=== PATIENT | female | born 1940 | race Caucasian/White ===

== ENCOUNTER 2016-06-30 05:54 | Inpatient (IN) | payer MEDICARE, OTHER ==
[~2016-06-30] VITALS: Ht 152.4 cm; Wt 78.9 kg
[~2016-06-30 05:54] MED LIST: ASPI81CH43 PO; FERR325T47 PO; FURO40TA4 PO; LEVO75CA PO; LISI40TA PO; LORA1TAB12 PO; POTA-167 PO; SITA100T7 PO
[2016-06-30 07:36] LABS: Basophils # (auto) 0 uL; Basophils % (auto) 0.7 % (0.0-2.0); DEFINITIVE VIEW TRANSMISSION; Eosinophils # (auto) 0.1 uL; Eosinophils % (auto) 2.2 % (0.0-7.0); Hematocrit 30.9 % (36.0-46.0); Hemoglobin 9.7 g/dL (12.2-16.2); Lymphocytes # (auto) 0.9 uL; Lymphocytes % (auto) 14.1 % (10.0-50.0); Mean Corpuscular Hemoglobin 26.2 pg (28.0-32.0); Mean Corpuscular Hgb Conc. 31.5 g/dL (32.0-36.0); Mean Platelet Volume 7.7 fL (7.4-10.4); Monocytes # (auto) 0.6 uL; Monocytes % (auto) 8.7 % (0.0-12.0); Neutrophils # (auto) 4.7 uL; Neutrophils % (auto) 74.3 % (37.0-80.0); Platelet Count (auto) 257 10^3/uL (140-450); Red Cell Distribution Width 16.5 % (11.6-16.0); White Blood Cell 6.4 10^3/uL (4.4-10.8)
[2016-06-30 07:50] LABS: INR 1.04 (0.9-1.15); Partial Thromboplastin Time 24.8 sec (22.64-33.71); Prothrombin Time 10.7 sec (9.37-12.3)
[2016-06-30 07:52] LABS: Albumin 3.1 g/dL (3.4-5.0); BUN/Creatinine Ratio 11.8; Calcium 7.8 mg/dL (8.5-10.1); Potassium 3.5 mmol/L (3.5-5.1)
[2016-06-30 07:54] LABS: Bilirubin, Total 0.4 mg/dL (0.2-1.0); Total Protein 6.4 g/dL (6.4-8.2)
[2016-06-30 08:06] LABS: Urine Bilirubin Negative (Negative); Urine Blood Negative /uL (Negative); Urine Color Colorless (Yellow); Urine Glucose Normal (Normal); Urine Ketone Negative (Negative); Urine Nitrite Negative (Negative); Urine RBC <1 /hpf (0 - 4); Urine Squamous Epithelial Cell FEW /hpf (<5); Urine Urobilinogen Normal (Negative)
[2016-06-30] MEDS ORDERED: FUROSEMIDE 40 MG/4 ML VIAL IV ONE (08:15)
[2016-06-30 09:00] LABS: Temperature: 21.9 C (20.0-25.0)
[2016-06-30] MEDS ORDERED: ONDANSETRON HCL 4 MG/2 ML VIAL IV PRN (10:15)
[2016-06-30] MEDS ORDERED: HYDROcodone-ACET 5/325MG TAB PO PRN (10:15)
[2016-06-30] MEDS ORDERED: NITROGLYCERIN 0.4 MG SL TAB SL PRN (10:15)
[2016-06-30] MEDS ORDERED: TEMAZEPAM 15 MG CAP PO PRN (10:15)
[2016-06-30] MEDS ORDERED: ASPirin-EC 81 mg tab PO ONE (10:15)
[2016-06-30] MEDS ORDERED: POTASSIUM CHL 10 Meq TABLET PO ONE (10:15)
[2016-06-30] MEDS ORDERED: LORazepam 0.5 MG TAB PO PRN (10:15)
[2016-06-30] MEDS ORDERED: MORPHINE SULF INJ 2 MG/ML SYRINGE 1ML IV PRN ×2 (10:15)
[2016-06-30] MEDS: MULTIPLE VITAMIN TAB PO SCH (10:23)
[2016-06-30] MEDS: SODIUM CHLOR 0.9% PF (SALINE LOCK) 10ML VIAL IV SCH ×2 (10:23→22:57)
[2016-06-30] MEDS: FAMOTIDINE 20 MG TAB PO SCH ×2 (10:23→22:56)
[2016-06-30] MEDS ORDERED: DEXTROSE (50%) 50ML SYRG IV PRN (10:30)
[2016-06-30] MEDS ORDERED: LISINOPRIL 20 MG TAB PO ONE (10:45)
[2016-06-30] MEDS ORDERED: LEVOTHYROXINE SODIUM 25 MCG TAB PO ONE (10:45)
[2016-06-30] MEDS: InsuLIN REG 1unit/0.01ml Soln (100units/ml) SC SCH ×3 (11:30→22:00)
[2016-06-30] MEDS: ACCU-CHEK COMFORT CURVE STRIP VI SCH ×3 (11:57→22:00)
[2016-06-30 13:00] VITALS: BP 159/67
[2016-06-30 13:24] VITALS: BP 159/67
[2016-06-30 17:00] VITALS: BP 153/59
[2016-06-30] MEDS: FUROSEMIDE 40 MG/4 ML VIAL IV SCH (18:13)
[2016-06-30] MEDS: FERROUS SULFATE 325 MG TAB PO SCH (18:13)
[2016-06-30 22:00] VITALS: BP 138/68
[2016-06-30] MEDS: NYSTATIN TOPICAL POWDER 15GM TOP SCH (22:00)
[2016-06-30] MEDS: POTASSIUM CHL 10 Meq TABLET PO SCH (22:56)
[2016-07-01 05:00] VITALS: BP 145/69
[2016-07-01 05:59] LABS: Basophils # (auto) 0.1 uL; Basophils % (auto) 1.2 % (0.0-2.0); DEFINITIVE VIEW TRANSMISSION; Eosinophils # (auto) 0.2 uL; Eosinophils % (auto) 3.2 % (0.0-7.0); Hematocrit 34.7 % (36.0-46.0); Lymphocytes # (auto) 1.4 uL; Lymphocytes % (auto) 24.9 % (10.0-50.0); Mean Corpuscular Hemoglobin 26.8 pg (28.0-32.0); Mean Corpuscular Hgb Conc. 31.7 g/dL (32.0-36.0); Mean Corpuscular Volume 84.6 fL (80.0-100.0); Monocytes # (auto) 0.7 uL; Monocytes % (auto) 12.6 % (0.0-12.0); Neutrophils # (auto) 3.2 uL; Neutrophils % (auto) 58.1 % (37.0-80.0); Platelet Count (auto) 269 10^3/uL (140-450); Red Cell Distribution Width 15.1 % (11.6-16.0); White Blood Cell 5.6 10^3/uL (4.4-10.8)
[2016-07-01 06:22] LABS: Albumin 3.7 g/dL (3.4-5.0); BUN/Creatinine Ratio 11.6; Bilirubin, Total 0.6 mg/dL (0.2-1.0); Calcium 8.7 mg/dL (8.5-10.1); Potassium 3.7 mmol/L (3.5-5.1)
[2016-07-01] MEDS: LEVOTHYROXINE SODIUM 25 MCG TAB PO SCH (06:45)
[2016-07-01] MEDS: FUROSEMIDE 40 MG/4 ML VIAL IV SCH ×2 (06:46→17:21)
[2016-07-01] MEDS: SODIUM CHLOR 0.9% PF (SALINE LOCK) 10ML VIAL IV SCH ×3 (06:46→21:44)
[2016-07-01] MEDS: InsuLIN REG 1unit/0.01ml Soln (100units/ml) SC SCH ×3 (06:47→16:58)
[2016-07-01] MEDS: ACCU-CHEK COMFORT CURVE STRIP VI SCH ×4 (06:47→22:00)
[2016-07-01] MEDS: metroNIDAZOLE 500MG/100ML 100 ML IV SCH ×3 (06:50→21:44)
[2016-07-01 09:00] VITALS: BP 123/48
[2016-07-01] MEDS: FERROUS SULFATE 325 MG TAB PO SCH ×2 (10:38→17:21)
[2016-07-01] MEDS: POTASSIUM CHL 10 Meq TABLET PO SCH ×2 (10:39→21:43)
[2016-07-01] MEDS: LISINOPRIL 20 MG TAB PO SCH (10:39)
[2016-07-01] MEDS: MULTIPLE VITAMIN TAB PO SCH (10:40)
[2016-07-01] MEDS: ASPirin-EC 81 mg tab PO SCH (10:40)
[2016-07-01] MEDS: FAMOTIDINE 20 MG TAB PO SCH ×2 (10:40→21:43)
[2016-07-01] MEDS: NYSTATIN TOPICAL POWDER 15GM TOP SCH (10:41)
[2016-07-01 12:59] VITALS: BP 128/62
[2016-07-01 17:00] VITALS: BP 158/57
[2016-07-01 22:00] VITALS: BP 145/68
[2016-07-02] MEDS: InsuLIN REG 1unit/0.01ml Soln (100units/ml) SC SCH ×5 (00:37→22:00)
[2016-07-02] MEDS: NYSTATIN TOPICAL POWDER 15GM TOP SCH ×3 (00:40→22:54)
[2016-07-02 04:57] VITALS: BP 142/52
[2016-07-02] MEDS: ACETAMINOPHEN 325 MG TAB PO PRN (05:23)
[2016-07-02] MEDS: LEVOTHYROXINE SODIUM 25 MCG TAB PO SCH (06:50)
[2016-07-02] MEDS: FUROSEMIDE 40 MG/4 ML VIAL IV SCH ×3 (06:51→18:43)
[2016-07-02] MEDS: metroNIDAZOLE 500MG/100ML 100 ML IV SCH ×3 (06:51→22:53)
[2016-07-02] MEDS: SODIUM CHLOR 0.9% PF (SALINE LOCK) 10ML VIAL IV SCH ×3 (06:51→22:53)
[2016-07-02] MEDS: ACCU-CHEK COMFORT CURVE STRIP VI SCH ×4 (06:52→22:54)
[2016-07-02] MEDS: FERROUS SULFATE 325 MG TAB PO SCH ×2 (07:56→17:30)
[2016-07-02 09:00] VITALS: BP 119/62
[2016-07-02] MEDS: POTASSIUM CHL 10 Meq TABLET PO SCH ×2 (10:29→22:53)
[2016-07-02] MEDS: MULTIPLE VITAMIN TAB PO SCH (10:29)
[2016-07-02] MEDS: FAMOTIDINE 20 MG TAB PO SCH ×2 (10:29→22:53)
[2016-07-02] MEDS: ASPirin-EC 81 mg tab PO SCH (10:30)
[2016-07-02] MEDS: LISINOPRIL 20 MG TAB PO SCH (10:31)
[2016-07-02 13:00] VITALS: BP 129/46
[2016-07-02 16:16] LABS: Urine Bilirubin Negative (Negative); Urine Color PINK (Yellow); Urine Glucose Normal (Normal); Urine Ketone Negative (Negative); Urine Nitrite Negative (Negative); Urine RBC 792 /hpf (0 - 4); Urine Squamous Epithelial Cell FEW /hpf (<5); Urine Urobilinogen Normal (Negative)
[2016-07-02 16:47] LABS: Urine Blood 3+ /uL (Negative)
[2016-07-02 17:00] VITALS: BP 119/63
[2016-07-02 21:54] VITALS: BP 124/64
[2016-07-03 05:00] VITALS: BP 135/61
[2016-07-03] MEDS: InsuLIN REG 1unit/0.01ml Soln (100units/ml) SC SCH ×4 (07:00→22:00)
[2016-07-03] MEDS: metroNIDAZOLE 500MG/100ML 100 ML IV SCH ×3 (07:48→22:30)
[2016-07-03] MEDS: FUROSEMIDE 40 MG/4 ML VIAL IV SCH ×2 (07:49→18:11)
[2016-07-03] MEDS: SODIUM CHLOR 0.9% PF (SALINE LOCK) 10ML VIAL IV SCH ×3 (07:49→22:30)
[2016-07-03] MEDS: LEVOTHYROXINE SODIUM 25 MCG TAB PO SCH (07:49)
[2016-07-03] MEDS: ACCU-CHEK COMFORT CURVE STRIP VI SCH ×4 (07:50→22:45)
[2016-07-03] MEDS: FERROUS SULFATE 325 MG TAB PO SCH ×2 (08:04→18:11)
[2016-07-03 09:00] VITALS: BP 116/53
[2016-07-03] MEDS: ASPirin-EC 81 mg tab PO SCH (09:52)
[2016-07-03] MEDS: POTASSIUM CHL 10 Meq TABLET PO SCH ×2 (09:52→22:30)
[2016-07-03] MEDS: LISINOPRIL 20 MG TAB PO SCH (09:53)
[2016-07-03] MEDS: MULTIPLE VITAMIN TAB PO SCH (09:53)
[2016-07-03] MEDS: FAMOTIDINE 20 MG TAB PO SCH ×2 (09:53→22:30)
[2016-07-03] MEDS: NYSTATIN TOPICAL POWDER 15GM TOP SCH ×2 (09:55→22:44)
[2016-07-03 13:00] VITALS: BP 142/64
[2016-07-03 16:41] VITALS: BP 126/57
[2016-07-03 22:00] VITALS: BP 137/71
[2016-07-03] MEDS: ACETAMINOPHEN 325 MG TAB PO PRN (23:46)
[2016-07-04 05:00] VITALS: BP 145/53
[2016-07-04] MEDS: SODIUM CHLOR 0.9% PF (SALINE LOCK) 10ML VIAL IV SCH (06:32)
[2016-07-04] MEDS: InsuLIN REG 1unit/0.01ml Soln (100units/ml) SC SCH (06:32)
[2016-07-04] MEDS: metroNIDAZOLE 500MG/100ML 100 ML IV SCH (06:32)
[2016-07-04] MEDS: FUROSEMIDE 40 MG/4 ML VIAL IV SCH (06:32)
[2016-07-04] MEDS: ACCU-CHEK COMFORT CURVE STRIP VI SCH (06:33)
[2016-07-04] MEDS: LEVOTHYROXINE SODIUM 25 MCG TAB PO SCH (06:34)
[2016-07-04 08:34] VITALS: BP 139/79
[2016-07-04] MEDS: FERROUS SULFATE 325 MG TAB PO SCH (08:42)
[2016-07-04] MEDS: NYSTATIN TOPICAL POWDER 15GM TOP SCH (10:00)
[2016-07-04] MEDS: MULTIPLE VITAMIN TAB PO SCH (10:00)
[2016-07-04] MEDS: FAMOTIDINE 20 MG TAB PO SCH (10:00)
[2016-07-04] MEDS: POTASSIUM CHL 10 Meq TABLET PO SCH (10:00)
[2016-07-04] MEDS: ASPirin-EC 81 mg tab PO SCH (10:00)
[2016-07-04] MEDS: LISINOPRIL 20 MG TAB PO SCH (10:00)
[2016-07-04 10:25] VITALS: BP 139/79
== END 2016-07-04 11:23 | disposition home or self-care (01) | DRG 371 ==
LOC: EDBD 05:54 → ER 05:56 → TELE 05:57 → TELE-WESTW 12:20
PROVIDERS: ADMIT Internal Medicine; ATTEND Internal Medicine
DX: A04.7 Enterocolitis due to Clostridium difficile (principal); I50.43 Acute on chronic combined systolic (congestive) and diastolic (congestive) heart failure; E46 Unspecified protein-calorie malnutrition; I13.0 Hypertensive heart and chronic kidney disease with heart failure and stage 1 through stage 4 chronic kidney disease, or unspecified chronic kidney disease; E83.51 Hypocalcemia; N18.3 Chronic kidney disease, stage 3 (moderate); K21.9 Gastro-esophageal reflux disease without esophagitis; E11.22 Type 2 diabetes mellitus with diabetic chronic kidney disease; E03.9 Hypothyroidism, unspecified; D63.8 Anemia in other chronic diseases classified elsewhere; E11.21 Type 2 diabetes mellitus with diabetic nephropathy; E78.5 Hyperlipidemia, unspecified; J44.9 Chronic obstructive pulmonary disease, unspecified; K57.30 Diverticulosis of large intestine without perforation or abscess without bleeding; Z83.3 Family history of diabetes mellitus; Z82.49 Family history of ischemic heart disease and other diseases of the circulatory system; Z87.891 Personal history of nicotine dependence; Z68.34 Body mass index [BMI] 34.0-34.9, adult; Z23 Encounter for immunization; Z90.49 Acquired absence of other specified parts of digestive tract
CPT/HCPCS: 36415; 51702; 71010; 74176; 80053; 81001; 82150; 82962; 83036; 83690; 83880; 84484; 85025; 85610; 85730; 87045; 87081; 87493; 87899; 93005; 96374; 97001; 97116; 97530; J1815; J3490

== ENCOUNTER → 2016-07-07 | Outpatient (CLI) | payer MEDICARE, OTHER ==
[~2016-07-07] MED LIST changes: -LORA1TAB12 PO
[2016-07-07 16:48] LABS: Basophils # (auto) 0 uL; Basophils % (auto) 0.7 % (0.0-2.0); Eosinophils # (auto) 0.1 uL; Eosinophils % (auto) 1.1 % (0.0-7.0); Hematocrit 31.5 % (36.0-46.0); Hemoglobin 10.1 g/dL (12.2-16.2); Lymphocytes # (auto) 1.2 uL; Lymphocytes % (auto) 19.8 % (10.0-50.0); Mean Corpuscular Volume 84.3 fL (80.0-100.0); Monocytes # (auto) 0.6 uL; Monocytes % (auto) 9.9 % (0.0-12.0); Neutrophils # (auto) 4.3 uL; Neutrophils % (auto) 68.5 % (37.0-80.0); Platelet Count (auto) 291 10^3/uL (140-450); Red Cell Distribution Width 16.6 % (11.6-16.0); White Blood Cell 6.3 10^3/uL (4.4-10.8)
[2016-07-07 17:11] LABS: Albumin 3.7 g/dL (3.4-5.0); BUN/Creatinine Ratio 17.2; Bilirubin, Total 0.4 mg/dL (0.2-1.0); Potassium 3.9 mmol/L (3.5-5.1); Total Protein 6.9 g/dL (6.4-8.2)
== END | disposition home or self-care (01) ==
LOC: Rad HDHVI 11:10
PROVIDERS: ATTEND Internal Medicine Cardiovascular Disease
DX: I10 Essential (primary) hypertension (principal); E78.00 Pure hypercholesterolemia, unspecified; E11.9 Type 2 diabetes mellitus without complications; E03.9 Hypothyroidism, unspecified; D64.9 Anemia, unspecified
CPT/HCPCS: 36415; 71020; 80053; 80061; 83036; 84439; 84443; 85025; 85049

== ENCOUNTER → 2016-12-10 | Outpatient (CLI) | payer MEDICARE, OTHER ==
[~2016-12-10] MED LIST changes: +READI-CAT 2 (BARIUM SULF)(VANILLA SMOOTHIE) 450ML ONE
[2016-12-10 17:01] LABS: Basophils # (auto) 0 uL; Basophils % (auto) 0.5 % (0.0-2.0); CONDITION Y; Eosinophils # (auto) 0.1 uL; Eosinophils % (auto) 1.8 % (0.0-7.0); Hematocrit 32.7 % (36.0-46.0); Hemoglobin 10.7 g/dL (12.2-16.2); Lymphocytes # (auto) 0.7 uL; Lymphocytes % (auto) 11.2 % (10.0-50.0); Mean Corpuscular Hemoglobin 27.3 pg (28.0-32.0); Mean Corpuscular Hgb Conc. 32.8 g/dL (32.0-36.0); Mean Corpuscular Volume 83.1 fL (80.0-100.0); Mean Platelet Volume 8.8 fL (7.4-10.4); Monocytes # (auto) 0.5 uL; Monocytes % (auto) 8.4 % (0.0-12.0); Neutrophils % (auto) 78.1 % (37.0-80.0); Platelet Count (auto) 260 10^3/uL (140-450); Red Cell Distribution Width 13.9 % (11.6-16.0); White Blood Cell 6.4 10^3/uL (4.4-10.8)
[2016-12-10 17:16] LABS: Albumin 3.7 g/dL (3.4-5.0); Alkaline Phosphatase 59 U/L (45-117); Anion Gap 7 (5-15); Aspartate Aminotransferase 13 U/L (15-37); BUN/Creatinine Ratio 19.8; Bilirubin, Direct < 0.1 mg/dL (0-0.2); Bilirubin, Total 0.5 mg/dL (0.2-1.0); Blood Urea Nitrogen 33 mg/dL (7-18); Calcium 9.3 mg/dL (8.5-10.1); Carbon Dioxide 32 mmol/L (21-32); Chloride 98 mmol/L (98-107); Cholesterol 175 mg/dL (< 200); GFR African American 38 mL/min; GFR Non-African American 32 mL/min; Glucose 139 mg/dL (74-106); HDL Cholesterol 44 mg/dL (40-59); LDL Cholesterol 90 mg/dL (< 100); Potassium 3.9 mmol/L (3.5-5.1); Sodium 137 mmol/L (136-145); Total Protein 7.3 g/dL (6.4-8.2); Triglycerides 274 mg/dL (< 150)
== END | disposition home or self-care (01) ==
LOC: Rad HDHVI 11:59
PROVIDERS: ATTEND Internal Medicine Cardiovascular Disease
DX: I10 Essential (primary) hypertension (principal); I70.90 Unspecified atherosclerosis; J90 Pleural effusion, not elsewhere classified; E78.00 Pure hypercholesterolemia, unspecified; K74.1 Hepatic sclerosis; E11.9 Type 2 diabetes mellitus without complications; E03.9 Hypothyroidism, unspecified; D64.9 Anemia, unspecified; N39.0 Urinary tract infection, site not specified; R70.0 Elevated erythrocyte sedimentation rate
CPT/HCPCS: 36415; 74176; 80048; 80061; 80076; 83036; 84443; 85025; 85652

== ENCOUNTER → 2017-01-22 | Outpatient (CLI) | payer MEDICARE, OTHER ==
[~2017-01-22] MED LIST changes: -READI-CAT 2 (BARIUM SULF)(VANILLA SMOOTHIE) 450ML ONE
== END | disposition home or self-care (01) ==
LOC: Rad HDHVI 08:01
PROVIDERS: ATTEND Internal Medicine Cardiovascular Disease
DX: I10 Essential (primary) hypertension (principal); J44.9 Chronic obstructive pulmonary disease, unspecified
CPT/HCPCS: 93306

== ENCOUNTER → 2017-03-03 | Outpatient (CLI) | payer MEDICARE, OTHER ==
[2017-03-03 16:44] LABS: Basophils # (auto) 0.1 uL; Basophils % (auto) 0.8 % (0.0-2.0); Eosinophils # (auto) 0.2 uL; Eosinophils % (auto) 1.6 % (0.0-7.0); Hematocrit 34.6 % (36.0-46.0); Hemoglobin 11.5 g/dL (12.2-16.2); Lymphocytes # (auto) 1.2 uL; Lymphocytes % (auto) 13.2 % (10.0-50.0); Mean Corpuscular Hemoglobin 28.2 pg (28.0-32.0); Mean Corpuscular Hgb Conc. 33.1 g/dL (32.0-36.0); Mean Corpuscular Volume 85.1 fL (80.0-100.0); Mean Platelet Volume 8.9 fL (7.4-10.4); Monocytes # (auto) 0.9 uL; Monocytes % (auto) 9.6 % (0.0-12.0); Neutrophils % (auto) 74.8 % (37.0-80.0); Nucleated Red Blood Cells % 0.1 %; Platelet Count (auto) 233 10^3/uL (140-450); Red Cell Distribution Width 13.8 % (11.6-16.0); White Blood Cell 9.4 10^3/uL (4.4-10.8)
[2017-03-03 16:53] LABS: Urine Bilirubin Negative (Negative); Urine Blood Negative /uL (Negative); Urine Color Yellow (Yellow); Urine Glucose Normal (Normal); Urine Ketone Negative (Negative); Urine Nitrite Negative (Negative); Urine Urobilinogen Normal (Negative); Urine pH 6.5 (5.0-8.0)
[2017-03-03 16:55] LABS: Alkaline Phosphatase 61 U/L (45-117); Anion Gap 11 (5-15); Aspartate Aminotransferase 14 U/L (15-37); BUN/Creatinine Ratio 20.9; Bilirubin, Direct 0.1 mg/dL (0-0.2); Bilirubin, Total 0.5 mg/dL (0.2-1.0); Blood Urea Nitrogen 49 mg/dL (7-18); Calcium 10.3 mg/dL (8.5-10.1); Carbon Dioxide 33 mmol/L (21-32); Chloride 96 mmol/L (98-107); Cholesterol 192 mg/dL (< 200); GFR African American 26 mL/min; GFR Non-African American 21 mL/min; Glucose 188 mg/dL (74-106); HDL Cholesterol 47 mg/dL (40-59); Potassium 5.3 mmol/L (3.5-5.1); Sodium 140 mmol/L (136-145); Total Protein 8.3 g/dL (6.4-8.2); Triglycerides 446 mg/dL (< 150)
== END | disposition home or self-care (01) ==
LOC: LAB 11:01
PROVIDERS: ATTEND Internal Medicine Cardiovascular Disease
DX: E78.00 Pure hypercholesterolemia, unspecified (principal); I11.0 Hypertensive heart disease with heart failure; I50.9 Heart failure, unspecified; K74.1 Hepatic sclerosis; E11.9 Type 2 diabetes mellitus without complications; E03.9 Hypothyroidism, unspecified; D64.9 Anemia, unspecified; E55.9 Vitamin D deficiency, unspecified; N39.0 Urinary tract infection, site not specified; J44.9 Chronic obstructive pulmonary disease, unspecified
CPT/HCPCS: 36415; 80048; 80061; 80076; 81003; 82306; 83036; 84443; 85025

== ENCOUNTER → 2017-03-20 | Outpatient (CLI) | payer MEDICARE, OTHER ==
[2017-03-20 12:44] LABS: BUN/Creatinine Ratio 25.7; Calcium 9.1 mg/dL (8.5-10.1); Potassium 3.6 mmol/L (3.5-5.1)
== END | disposition home or self-care (01) ==
LOC: LAB 09:04
PROVIDERS: ATTEND Internal Medicine Cardiovascular Disease
DX: I10 Essential (primary) hypertension (principal)
CPT/HCPCS: 36415; 80048

== ENCOUNTER → 2017-05-25 | Outpatient (CLI) | payer MEDICARE, OTHER ==
[~2017-05-25] MED LIST changes: +READI-CAT 2 (BARIUM SULF)(VANILLA SMOOTHIE) 450ML ONE
== END | disposition home or self-care (01) ==
LOC: Rad HDHVI 10:18
PROVIDERS: ATTEND Internal Medicine Cardiovascular Disease
DX: K57.30 Diverticulosis of large intestine without perforation or abscess without bleeding (principal); R91.8 Other nonspecific abnormal finding of lung field; I70.0 Atherosclerosis of aorta
CPT/HCPCS: 74176

== ENCOUNTER → 2017-06-30 | Outpatient (CLI) | payer MEDICARE, OTHER ==
[~2017-06-30] MED LIST changes: -READI-CAT 2 (BARIUM SULF)(VANILLA SMOOTHIE) 450ML ONE
[2017-06-30 12:28] LABS: Sodium 137 mmol/L (136-145)
[2017-06-30 12:29] LABS: Alanine Aminotransferase 19 U/L (13-56); Albumin 3.9 g/dL (3.4-5.0); Alkaline Phosphatase 104 U/L (45-117); Anion Gap 9 (5-15); Aspartate Aminotransferase 8 U/L (15-37); BUN/Creatinine Ratio 26.1; Bilirubin, Total 0.7 mg/dL (0.2-1.0); Blood Urea Nitrogen 57 mg/dL (7-18); Calcium 8.9 mg/dL (8.5-10.1); Carbon Dioxide 32 mmol/L (21-32); Chloride 96 mmol/L (98-107); Cholesterol 193 mg/dL (< 200); GFR African American 28 mL/min; GFR Non-African American 23 mL/min; Glucose 241 mg/dL (74-106); HDL Cholesterol 47 mg/dL (40-59); Total Protein 7.8 g/dL (6.4-8.2); Triglycerides 467 mg/dL (< 150)
== END | disposition home or self-care (01) ==
LOC: LAB 09:37
PROVIDERS: ATTEND Internal Medicine Cardiovascular Disease
DX: E78.00 Pure hypercholesterolemia, unspecified (principal); E11.9 Type 2 diabetes mellitus without complications; I10 Essential (primary) hypertension
CPT/HCPCS: 36415; 80053; 80061; 83036

== ENCOUNTER → 2017-07-02 | Outpatient (CLI) | payer MEDICARE, OTHER ==
[~2017-07-02] MED LIST changes: +IOHEXOL 350 MG/ML 100ML IJ ONE
[2017-07-02 10:20] VITALS: BP 190/77
[2017-07-02 11:35] VITALS: BP 176/79
== END | disposition home or self-care (01) ==
LOC: Rad HDHVI 09:54
PROVIDERS: ATTEND Internal Medicine Cardiovascular Disease
DX: J44.9 Chronic obstructive pulmonary disease, unspecified (principal); R91.8 Other nonspecific abnormal finding of lung field
CPT/HCPCS: 71260; 82565; 96374; G0463; Q9967

== ENCOUNTER → 2017-11-30 | Outpatient (CLI) | payer MEDICARE, OTHER ==
[~2017-11-30] MED LIST changes: -IOHEXOL 350 MG/ML 100ML IJ ONE
[2017-11-30 15:10] VITALS: BP 158/74
[2017-11-30 15:40] VITALS: BP 166/78
[2017-11-30 15:55] LABS: Basophils # (auto) 0 uL; Basophils % (auto) 0.5 % (0.0-2.0); Eosinophils # (auto) 0.1 uL; Eosinophils % (auto) 1.5 % (0.0-7.0); Hematocrit 37.8 % (36.0-46.0); Hemoglobin 12.1 g/dL (12.2-16.2); Lymphocytes # (auto) 1.3 uL; Lymphocytes % (auto) 13.4 % (10.0-50.0); Mean Corpuscular Hemoglobin 27.1 pg (28.0-32.0); Mean Corpuscular Hgb Conc. 31.9 g/dL (32.0-36.0); Mean Corpuscular Volume 84.7 fL (80.0-100.0); Monocytes # (auto) 0.8 uL; Monocytes % (auto) 9.1 % (0.0-12.0); Neutrophils % (auto) 75.5 % (37.0-80.0); Nucleated Red Blood Cells % 0.1 %; Platelet Count (auto) 271 10^3/uL (140-450); Red Blood Cells 4.46 10^6/uL (4.0-5.20); Red Cell Distribution Width 13.1 % (11.8-14.3); White Blood Cell 9.3 10^3/uL (4.4-10.8)
[2017-11-30 16:10] LABS: BUN/Creatinine Ratio 23.1; Calcium 9.7 mg/dL (8.5-10.1); Potassium 3.7 mmol/L (3.5-5.1)
== END | disposition home or self-care (01) ==
LOC: LAB 15:09
PROVIDERS: ATTEND Internal Medicine Cardiovascular Disease
DX: E11.22 Type 2 diabetes mellitus with diabetic chronic kidney disease (principal); I25.10 Atherosclerotic heart disease of native coronary artery without angina pectoris; I12.9 Hypertensive chronic kidney disease with stage 1 through stage 4 chronic kidney disease, or unspecified chronic kidney disease; N18.3 Chronic kidney disease, stage 3 (moderate); J44.9 Chronic obstructive pulmonary disease, unspecified; E78.5 Hyperlipidemia, unspecified; E78.00 Pure hypercholesterolemia, unspecified; E03.9 Hypothyroidism, unspecified
CPT/HCPCS: 36415; 80048; 83036; 85025; 96372; G0463

== ENCOUNTER → 2018-02-24 | Outpatient (CLI) | payer MEDICARE, OTHER | END | disposition home or self-care (01) | LOC: LAB 09:06 | PROVIDERS: ATTEND Internal Medicine Cardiovascular Disease | DX: E11.21 Type 2 diabetes mellitus with diabetic nephropathy (principal); E11.65 Type 2 diabetes mellitus with hyperglycemia; E03.9 Hypothyroidism, unspecified; J44.9 Chronic obstructive pulmonary disease, unspecified; Z90.710 Acquired absence of both cervix and uterus; Z87.891 Personal history of nicotine dependence | CPT/HCPCS: 36415; 83036; 84443 ==

== ENCOUNTER → 2018-09-07 | Outpatient (CLI) | payer MEDICARE, OTHER ==
[2018-09-07 12:04] LABS: Basophils # (auto) 0.1 uL; Basophils % (auto) 0.9 % (0.0-2.0); Eosinophils # (auto) 0.2 uL; Eosinophils % (auto) 2.7 % (0.0-7.0); Hematocrit 36.7 % (36.0-46.0); Hemoglobin 11.9 g/dL (12.2-16.2); Lymphocytes # (auto) 1.1 uL; Lymphocytes % (auto) 15.9 % (10.0-50.0); Mean Corpuscular Hemoglobin 27.2 pg (28.0-32.0); Mean Corpuscular Hgb Conc. 32.3 g/dL (32.0-36.0); Monocytes # (auto) 0.6 uL; Monocytes % (auto) 8.9 % (0.0-12.0); Neutrophils % (auto) 71.6 % (37.0-80.0); Nucleated Red Blood Cells % 0.1 %; Platelet Count (auto) 264 10^3/uL (140-450); Red Blood Cells 4.37 10^6/uL (4.0-5.20); Red Cell Distribution Width 13.7 % (11.8-14.3); Urine Blood Negative /uL (Negative); Urine Specific Gravity 1.014 (1.001-1.035)
[2018-09-07 12:18] LABS: Potassium 3.7 mmol/L (3.5-5.1)
[2018-09-07 12:24] LABS: Free T4 (Free Thyroxine) 1.07 ng/dL (0.89-1.76)
[2018-09-07 12:27] LABS: Albumin 3.7 g/dL (3.4-5.0); Bilirubin, Total 0.5 mg/dL (0.2-1.0); Calcium 9.4 mg/dL (8.5-10.1); Total Protein 7.8 g/dL (6.4-8.2)
== END | disposition home or self-care (01) ==
LOC: LAB 08:30
PROVIDERS: ATTEND Internal Medicine Cardiovascular Disease
DX: E55.9 Vitamin D deficiency, unspecified (principal); E03.9 Hypothyroidism, unspecified; E11.9 Type 2 diabetes mellitus without complications; D51.9 Vitamin B12 deficiency anemia, unspecified; N39.0 Urinary tract infection, site not specified
CPT/HCPCS: 36415; 80053; 80061; 81003; 82306; 82607; 83036; 84439; 84443; 85025; 87086

== ENCOUNTER → 2018-10-18 | Outpatient (CLI) | payer MEDICARE, OTHER | END | disposition home or self-care (01) | LOC: LAB 09:06 | PROVIDERS: ATTEND Internal Medicine | DX: E03.9 Hypothyroidism, unspecified (principal); E55.9 Vitamin D deficiency, unspecified | CPT/HCPCS: 36415; 82306; 84439; 84443 ==

== ENCOUNTER → 2018-12-07 | Outpatient (CLI) | payer MEDICARE, OTHER ==
[~2018-12-07] MED LIST changes: +IOHEXOL 350 MG/ML 100ML IJ ONE
== END | disposition home or self-care (01) ==
LOC: Rad HDHVI 09:58
PROVIDERS: ATTEND Internal Medicine
DX: R94.4 Abnormal results of kidney function studies (principal)
CPT/HCPCS: 36415; 82565; Q9967

== ENCOUNTER → 2018-12-10 | Outpatient (CLI) | payer MEDICARE, OTHER ==
[~2018-12-10] MED LIST changes: -IOHEXOL 350 MG/ML 100ML IJ ONE
[2018-12-10 10:15] VITALS: BP 159/56
--- NOTE | 2018-12-10 11:00 | NUR ---
CREATININE ELEVATE 2.3 FROM 12/07/18. PT DOES HAVE KNOWN KIDNEY DISEASE. DR VIDAL CONSULTED REGARDING PENDING CT SCAN AND PTS STATUS AND HISTORY. PT UNABLE TO STAY IN CLINIC TODAY FOR IV HYDRATION. PT REPORTS THAT SHE HAS A 2 PM APPOINTMENT AND IS UNABLE TO STAY FOR IV HYDRATION. REVIEWED MEDICATION. PLAN TO HOLD LASIX PILL 40 MG X THREE DAYS, (TODAY, THURSDAY AND THURSDAY). RESUME MEDICATION IF EXPERIENCES ANY SHORTNESS OF BREATH. PT REPEATED BACK VERBAL INSTRUCTIONS. RETURN TO CLINIC ON THURSDAY FOR STAT LABS AND ADDITIONAL EVALUATION FOR CT NECK WITH OR WITHOUT CONTRAST. DISCHARGED TO SELF CARE IN NO DISTRESS.
== END | disposition home or self-care (01) ==
LOC: Rad HDHVI 10:05
PROVIDERS: ATTEND Internal Medicine
DX: J06.9 Acute upper respiratory infection, unspecified (principal); J04.0 Acute laryngitis
CPT/HCPCS: G0463

== ENCOUNTER → 2019-05-30 | Outpatient (CLI) | payer MEDICARE, OTHER ==
[~2019-05-30] MED LIST changes: -LEVO75CA PO; +LEVO75CA2 PO
== END | disposition home or self-care (01) ==
LOC: Rad HDHVI 13:56
PROVIDERS: ATTEND Internal Medicine
DX: J44.9 Chronic obstructive pulmonary disease, unspecified (principal); M85.80 Other specified disorders of bone density and structure, unspecified site; R06.02 Shortness of breath; R07.9 Chest pain, unspecified
CPT/HCPCS: 71046

== ENCOUNTER → 2020-04-04 | Outpatient (CLI) | payer MEDICARE, OTHER ==
[~2020-04-04] MED LIST changes: -LISI40TA PO; +LISI40TA11 PO
[2020-04-04 16:09] LABS: Urine Blood Negative /uL (Negative); Urine Specific Gravity 1.007 (1.001-1.035)
[2020-04-04 16:14] LABS: Basophils # (auto) 0.1 10 ^3/uL (0-0.2); Basophils % (auto) 0.6 % (0.0-2.0); Eosinophils # (auto) 0.1 10 ^3/uL (0-0.8); Eosinophils % (auto) 1.4 % (0.0-7.0); Hematocrit 36.8 % (36.0-46.0); Lymphocytes % (auto) 11.2 % (10.0-50.0); Mean Corpuscular Hemoglobin 27.3 pg (28.0-32.0); Mean Corpuscular Hgb Conc. 32.7 g/dL (32.0-36.0); Mean Corpuscular Volume 83.5 fL (80.0-100.0); Monocytes # (auto) 0.7 10 ^3/uL (0-1.3); Monocytes % (auto) 7.9 % (0.0-12.0); Neutrophils # (auto) 7.3 10 ^3/uL (1.6-8.6); Neutrophils % (auto) 78.9 % (37.0-80.0); Platelet Count (auto) 242 10^3/uL (140-450); Red Cell Distribution Width 13.4 % (11.8-14.3); White Blood Cell 9.2 10^3/uL (4.4-10.8)
[2020-04-04 16:20] LABS: Albumin 3.7 g/dL (3.4-5.0); Calcium 9.4 mg/dL (8.5-10.1); Potassium 4.1 mmol/L (3.5-5.1)
[2020-04-04 16:27] LABS: BUN/Creatinine Ratio 22.3; Bilirubin, Direct 0.2 mg/dL (0-0.2); Bilirubin, Total 0.6 mg/dL (0.2-1.0); Total Protein 7.6 g/dL (6.4-8.2)
== END | disposition home or self-care (01) ==
LOC: LAB 11:21
PROVIDERS: ATTEND Internal Medicine Cardiovascular Disease
DX: I10 Essential (primary) hypertension (principal); D51.3 Other dietary vitamin B12 deficiency anemia; E11.9 Type 2 diabetes mellitus without complications; E55.9 Vitamin D deficiency, unspecified; D64.9 Anemia, unspecified; R00.2 Palpitations; R53.1 Weakness; R30.0 Dysuria
CPT/HCPCS: 36415; 80048; 80061; 80076; 81003; 82306; 83036; 84443; 85025; 87086

== ENCOUNTER → 2022-09-24 | Outpatient (CLI) | payer MEDICARE, OTHER ==
[~2022-09-24] MED LIST changes: +READI-CAT 2 (BARIUM SULF)(VANILLA SMOOTHIE) 450ML ONE
== END | disposition home or self-care (01) ==
LOC: Rad HDHVI 15:02
PROVIDERS: ATTEND Internal Medicine Cardiovascular Disease
DX: K86.89 Other specified diseases of pancreas (principal); K57.30 Diverticulosis of large intestine without perforation or abscess without bleeding; K42.9 Umbilical hernia without obstruction or gangrene; Z90.710 Acquired absence of both cervix and uterus
CPT/HCPCS: 74176